=== PATIENT | male | born 1955 | race Caucasian/White ===

== ENCOUNTER 2018-03-05 10:30 | Emergency (ER) | payer MEDICARE, OTHER ==
--- NOTE | 2018-03-05 11:10 | CT ---
CT OF HEAD PERFORMED WITHOUT CONTRAST ENHANCEMENT: COMPARISON: An 02/24/2002 exam. HISTORY: Fall with left scalp laceration. FINDINGS: There is old encephalomalacia change of the right frontal lobe and left temporal lobe. The ventricul ar and cisternal system shows fairly age-appropriate change. There are no signs of intracerebral hem orrhage or extraaxial fluid collections. There is some moderate cerebellar atrophy noted. The masto id air cells and visualized sinuses are clear. IMPRESSION: No acute intracranial abnormalities. 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 POS: WAYLONH
== END 2018-03-05 12:25 ==
LOC: ERS 10:30
DX: S01.01XA Laceration without foreign body of scalp, initial encounter (principal); I10 Essential (primary) hypertension; D64.9 Anemia, unspecified; Z79.899 Other long term (current) drug therapy; W01.0XXA Fall on same level from slipping, tripping and stumbling without subsequent striking against object, initial encounter
CPT/HCPCS: 12001; 70450

== ENCOUNTER 2018-07-15 00:29 | Emergency (ER) | payer MEDICARE, MEDICAID ==
[2018-07-15] MEDS ORDERED: Lidocaine 1% w/Epinephrine 1:100K 20 ML VIAL ONE (00:42)
--- NOTE | 2018-07-15 08:17 | CT ---
PRELIMINARY REPORT/[facility]/EMERGENCY AFTER HOURS PROCEDURE: EXAM: CT Head Without Contrast EXAM DATE/TIME: 07/15/2018 12:57 AM CLINICAL HISTORY: 63 years old, male; Injury or trauma; Fall; Initial encounter; Blunt trauma (contusions or hematomas) ; Patient HX: 63 y/o m presents from [facility] due to a ground level fall while walking where he hit his head on posterior aspect. Denies any loc. Reports some head pain near a scalp lac on posteri or head. Denies any neck pain, hip pain. TECHNIQUE: Imaging protocol: Axial computed tomography images of the head/brain without contrast. COMPARISON: No relevant prior studies available. FINDINGS: Brain: No intracrainal hemorrhage. No midline shift. Large area of encephalomalacia change involving the inferior right frontal lobe most consistent with prior ischemia. Small area of conception with a change in the far inferior left frontal lobe Ventricles: No ventriculomegaly. Bones/joints: Unremarkable. No acute fracture. Sinuses: Visualized sinuses are unremarkable. No acute sinusitis. Mastoid air cells: Visualized mastoid air cells are unremarkable. No mastoid effusion. Soft tissues: Unremarkable. IMPRESSION: No acute intracranial abnormality. Thank you for allowing us to participate in the care of your patient. Dictated and Authenticated by: Sagar Glover MD 07/15/2018 1:39 AM Central Time ([place] & [place]) FINAL REPORT EMERGENCY AFTER HOURS CT BRAIN PERFORMED WITHOUT CONTRAST ENHANCEMENT: Date: 07/15/18 HISTORY: Fall hitting head, head laceration. COMPARISON: 03/05/18 study. FINDINGS: The ventricular and cisternal system shows generalized atrophy. Encephalomalacia change is again note d in the right frontal lobe. Also, some changes in the left temporal region, and some encephalomalaci a change in the left frontal lobe. There are no signs of intracerebral hemorrhage or extra-axial flui d collections. Mastoid air cells and visualized sinuses are clear. IMPRESSION: No acute intracranial abnormalities. This report is in agreement with the preliminary report issued by [facility]. POS: VALENTÍN
== END 2018-07-15 02:51 | disposition home or self-care (01) ==
LOC: ERS 00:29
DX: S01.01XA Laceration without foreign body of scalp, initial encounter (principal); I10 Essential (primary) hypertension; Z86.73 Personal history of transient ischemic attack (TIA), and cerebral infarction without residual deficits; D64.9 Anemia, unspecified; F32.9 Major depressive disorder, single episode, unspecified; Z79.899 Other long term (current) drug therapy; W18.30XA Fall on same level, unspecified, initial encounter
CPT/HCPCS: 12002; 70450; J2001